=== PATIENT | male | born 1990 | race American Indian/Alaskan Native ===

== ENCOUNTER 2017-03-16 12:41 | Emergency (ER) | payer SELFPAY ==
[2017-03-16 13:42] VITALS: BP 112/71
--- NOTE | 2017-03-16 14:40 | Emergency Department Report ---
HPI - General Chief Complaint: Sore Throat Time Seen by Provider: 03/16/17 14:17 - HPI HPI: 26-year-old male presents today with sore throat 4 days. Patient states that he was seen at medical clinic 2 days ago and was diagnosed with sinus congestion prescribed Flonase, Claritin and viscous lidocaine. Patient denies any relief post medication use. Positive for painful swallowing. Patient has also tried ibuprofen, Tylenol, TheraFlu without relief. Denies any sick contacts. Denies fever, chills, nausea, vomiting, chest pain, shortness of breath, abdominal pain. ED Past Medical Hx - Surgical History Past Surgical History?: Yes Additional Surgical History: face reconstruction, throat - Social History Smoking Status: Current Every Day Smoker Substance Use Type: Marijuana - Medications Home Medications: Home Medications Medication Instructions Recorded Confirmed Last Taken Type Amoxicillin [Amoxicillin TAB] 875 mg PO BID #20 tablet 03/16/17 Unknown Rx Lidocaine Viscous 2% 15 ml MM TID #100 udc 03/16/17 Unknown Rx ED Review of Systems ROS: Stated complaint: STREP THROAT Other details as noted in HPI Constitutional: denies: chills, fever, malaise Eyes: denies: eye pain ENT: throat pain, congestion. denies: ear pain Respiratory: denies: cough, shortness of breath, wheezing Cardiovascular: denies: chest pain, palpitations Endocrine: no symptoms reported Gastrointestinal: denies: abdominal pain, nausea, vomiting Neurological: denies: headache, weakness Physical Exam - Physical Exam Vital Signs: Vital Signs 03/16/17 13:35 Temperature 98.6 F Pulse Rate 72 Respiratory 18 Rate Blood Pressure 112/71 O2 Sat by Pulse 100 Oximetry Physical Exam: GENERAL: The patient is well-developed and well-nourished. Patient is in NAD. HEAD: Normocephalic. Atraumatic. EYES: PERRL. EARS: External auditory canals and tympanic membranes clear; hearing grossly intact. NOSE: Normal nasal mucosa. Positive for nasal drainage. THROAT: Erythematous, tonsillomegaly with tonsillar exudates. NECK: Positive for left-sided anterior cervical lymphadenopathy. CHEST/LUNGS: Clear to auscultation throughout. HEART/CARDIOVASCULAR: Regular rate and rhythm. No murmurs, rubs or gallops. ABDOMEN: Abdomen is soft, nontender. Bowel sounds normoactive. No guarding or rebound tenderness. EXTREMITIES: Peripheral pulses intact. Capillary refill less than 2 seconds. NEURO: Alert and oriented x 3. Normal gait. ED Course Vital Signs 03/16/17 13:35 Temperature 98.6 F Pulse Rate 72 Respiratory 18 Rate Blood Pressure 112/71 O2 Sat by Pulse 100 Oximetry ED Medical Decision Making - Lab Data Vital Signs 03/16/17 13:35 Temperature 98.6 F Pulse Rate 72 Respiratory 18 Rate Blood Pressure 112/71 O2 Sat by Pulse 100 Oximetry - Medical Decision Making 26-year-old male presents today with sore throat and painful swallowing 4 days. His rapid strep test is negative. Patient is in no acute distress at this time. He will be discharged home and is encouraged to follow up with a primary care provider. He will be sent home on amoxicillin and viscous lidocaine and is encouraged to return to the emergency room for any worsening symptoms. Critical care attestation.: If time is entered above; I have spent that time in minutes in the direct care of this critically ill patient, excluding procedure time. ED Disposition Clinical Impression: Pharyngitis Qualifiers: Pharyngitis/tonsillitis etiology: unspecified etiology Qualified Code(s): J02.9 - Acute pharyngitis, unspecified Disposition: DISCHARGED TO HOME OR SELFCARE Is pt being admited?: No Does the pt Need Aspirin: No Condition: Stable Instructions: Pharyngitis (ED), Strep Throat (ED) Additional Instructions: Follow-up with primary care provider. Return to the emergency department if symptoms worsen. Prescriptions: Amoxicillin [Amoxicillin TAB] 875 mg PO BID #20 tablet Lidocaine Viscous 2% 15 ml MM TID #100 c Referrals: PRIMARY CARE [Primary Care Provider] - 3-5 Days [facility] [Outside] - 3-5 Days Forms: Work/School Release Form(ED) Time of Disposition: 14:38
== END 2017-03-16 14:49 | disposition home or self-care (01) ==
LOC: ED 12:41
DX: J02.9 Acute pharyngitis, unspecified (principal); F17.200 Nicotine dependence, unspecified, uncomplicated; F12.90 Cannabis use, unspecified, uncomplicated
CPT/HCPCS: 87116; 87430; 99282